=== PATIENT | male | born 1965 | race Two or more races ===

== ENCOUNTER 2017-12-03 21:18 | Emergency (ER) | payer OTHER ==
[~2017-12-03] VITALS: Ht 165.1 cm; Wt 80.0 kg
[~2017-12-03 21:18] MED LIST: ALBU8HFA PO; AZIT250T PO
[2017-12-03] MEDS ORDERED: CIPR-259 PO (23:13)
[2017-12-03] MEDS ORDERED: IBUP-1984 PO (23:14)
[2017-12-03] MEDS ORDERED: TETanus/Pertussis (Acell)/Diphther VAC/PF (Tdap-Adult) 0.5ml syringe IM ONE (23:20)
[2017-12-03 23:32] VITALS: BP 132/76
== END 2017-12-03 23:33 | disposition home or self-care (01) ==
LOC: ER 21:19
DX: S91.331A Puncture wound without foreign body, right foot, initial encounter (principal); F12.90 Cannabis use, unspecified, uncomplicated; Z88.1 Allergy status to other antibiotic agents; Z79.899 Other long term (current) drug therapy; W26.8XXA Contact with other sharp object(s), not elsewhere classified, initial encounter; Y93.89 Activity, other specified; Y92.89 Other specified places as the place of occurrence of the external cause; Y99.8 Other external cause status
CPT/HCPCS: 73630; 90471; 90715; 99284

== ENCOUNTER 2018-06-19 20:35 | Emergency (ER) | payer MEDICAID ==
[~2018-06-19] VITALS: Ht 165.1 cm; Wt 85.0 kg
[2018-06-19] MEDS ORDERED: acetaminophen 325mg tablet PO ONE (21:15)
[2018-06-19] MEDS ORDERED: proCHLORperazine 10mg tablet PO ONE (21:15)
[2018-06-19 21:34] VITALS: BP 131/93
[2018-06-19] MEDS ORDERED: ketorolac trometh inj. 60 MG/2 ML VIAL IM ONE (21:50)
[2018-06-19] MEDS ORDERED: aspirin 325mg tablet PO ONE (21:50)
== END 2018-06-19 22:56 | disposition home or self-care (01) ==
LOC: ER 20:35
DX: S06.0X9A Concussion with loss of consciousness of unspecified duration, initial encounter (principal); S00.03XA Contusion of scalp, initial encounter; F12.90 Cannabis use, unspecified, uncomplicated; Z88.2 Allergy status to sulfonamides; Z79.899 Other long term (current) drug therapy; W22.8XXA Striking against or struck by other objects, initial encounter; Y93.89 Activity, other specified; Y92.89 Other specified places as the place of occurrence of the external cause; Y99.8 Other external cause status
CPT/HCPCS: 70450; 96372; 99284; J1885; Q0164

== ENCOUNTER 2018-12-20 16:16 | Emergency (ER) | payer MEDICAID ==
[~2018-12-20] VITALS: Ht 165.1 cm; Wt 74.0 kg
[2018-12-20] MEDS ORDERED: AMOX-580 PO (16:50)
[2018-12-20 17:08] VITALS: BP 105/78
== END 2018-12-20 16:55 | disposition home or self-care (01) ==
LOC: ER 16:16
DX: K02.9 Dental caries, unspecified (principal); K03.81 Cracked tooth; F12.90 Cannabis use, unspecified, uncomplicated; R61 Generalized hyperhidrosis; Z88.2 Allergy status to sulfonamides; Z88.8 Allergy status to other drugs, medicaments and biological substances; Z79.899 Other long term (current) drug therapy
CPT/HCPCS: 99283